=== PATIENT | male | born 1960 | race African-American/Black ===

== ENCOUNTER 2021-02-23 11:28 | Emergency (ER) | payer SELFPAY ==
[2021-02-23] MEDS ORDERED: Acetaminophen 500 MG Tab PO ONE (16:04)
[2021-02-23] MEDS ORDERED: Ibuprofen 400 MG Tab PO ONE (16:04)
--- NOTE | 2021-02-23 16:10 | EDM.PDOC ---
ED HPI GENERAL MEDICAL PROBLEM - General Chief Complaint: Head Injury Stated Complaint: FELL HIT FACE AND PAIN ON RIGHT RIB AREA Time Seen by Provider: 02/23/21 15:46 Source of Information: Reports: Patient History Limitations: Reports: No Limitations - History of Present Illness INITIAL COMMENTS - FREE TEXT/NARRATIVE: 60 yo male presents to ER with pain in his left side following a fall 2 days ago. He tripped falling to the cement striking his right face and right side on the ground. He feels he may of have a very brief LOC. after the fall he did not have a headache, denies nausea or vomiting. today he had no complaints of headache. Right side tender chest wall. no SOB. - Related Data Allergies Allergy/AdvReac Type Severity Reaction Status Date / Time No Known Allergies Allergy Verified 02/23/21 15:46 Home Meds: Home Meds . [Unable to Verify Home Med List] 02/23/21 [History] Past Medical History HEENT History: Reports: Impaired Vision Cardiovascular History: Reports: High Cholesterol Musculoskeletal History: Reports: Arthritis - Infectious Disease History Infectious Disease History: Reports: Chicken Pox, Measles, Mumps - Past Surgical History Head Surgeries/Procedures: Reports: None HEENT Surgical History: Reports: None Cardiovascular Surgical History: Reports: None Musculoskeletal Surgical History: Reports: None Dermatological Surgical History: Reports: None Social & Family History - Tobacco Use Tobacco Use Status *Q: Current Every Day Tobacco User Years of Tobacco use: 45 Packs/Tins Daily: 0.2 Used Tobacco, but Quit: No Second Hand Smoke Exposure: No - Caffeine Use Caffeine Use: Reports: None - Alcohol Use Days Per Week of Alcohol Use: 5 Number of Drinks Per Day: 4 Total Drinks Per Week: 20 - Recreational Drug Use Recreational Drug Use: No ED ROS GENERAL - Review of Systems Review Of Systems: See Below Constitutional: Denies: Fever, Chills Respiratory: Denies: Shortness of Breath, Wheezing Cardiovascular: Denies: Chest Pain ED EXAM, HEAD INJURY - Physical Exam Exam: See Below Exam Limited By: No Limitations General Appearance: Alert, WD/WN, No Apparent Distress Head: Atraumatic, Normocephalic Nexus Criteria: No: Posterior, Midline Cervical Tenderness, Evidence of Intoxication, Altered Level of Consciousness, Focal Neurological Deficit, Painful Distraction Injuries Neck: Non-Tender, Full Range of Motion Respiratory: No Respiratory Distress, Lungs Clear, Normal Breath Sounds, No Accessory Muscle Use, Chest Non-Tender, Other (right chest wall tenderness). No: Crackles, Rhonchi, Wheezing Cardiovascular: Regular Rate, Rhythm, Systolic Murmur GI/Abdominal Exam: Normal Bowel Sounds, Soft, Non-Tender, Hepatomegaly Course - Vital Signs Last Recorded V/S: Last Vital Signs Temp 36.7 C 02/23/21 15:47 Pulse 82 02/23/21 15:47 Resp 16 02/23/21 15:47 BP 164/83 H 02/23/21 15:47 Pulse Ox 96 02/23/21 15:47 - Orders/Labs/Meds Orders: Active Orders 24 hr Category Date Time Status Chest 2V [CR] Stat Exams 02/23/21 16:03 Taken Meds: Medications Discontinued Medications Generic Name Dose Route Start Last Admin Trade Name Freq PRN Reason Stop Dose Admin Acetaminophen 1,000 mg 02/23/21 16:04 02/23/21 16:42 Acetaminophen 500 Mg Tab PO 02/23/21 16:05 1,000 mg ONETIME ONE Administration Ibuprofen 400 mg 02/23/21 16:04 02/23/21 16:41 Ibuprofen 400 Mg Tab PO 02/23/21 16:05 400 mg ONETIME ONE Administration - Re-Assessments/Exams Free Text/Narrative Re-Assessment/Exam: 02/23/21 17:19 no acute osseous injury noted on chest x-ray. encouraged to decrease etOH intake Departure - Departure Time of Disposition: 17:20 Disposition: Home, Self-Care 01 Condition: Good Clinical Impression: Chest wall pain Fall Qualifiers: Encounter type: initial encounter Qualified Code(s): W19.XXXA - Unspecified fall, initial encounter - Discharge Information *PRESCRIPTION DRUG MONITORING PROGRAM REVIEWED*: Not Applicable *COPY OF PRESCRIPTION DRUG MONITORING REPORT IN PATIENT HEVER: Not Applicable Instructions: Chest Wall Pain, [id number] Referrals: PCP,None [Primary Care Provider] - Forms: ED Department Discharge Additional Instructions: ice at least 3 times per day for 15 minutes 3 deep breaths hourly while awake ibuprofen 400-600 mg every 6 hours for pain your liver looked very large on the x-ray, recommend decreasing your alcohol intake as we discussed Sepsis Event Note (ED) - Evaluation Sepsis Screening Result: No Definite Risk - Focused Exam Vital Signs: Vital Signs Temp Pulse Resp BP Pulse Ox 02/23/21 15:47 36.7 C 82 16 164/83 H 96 02/23/21 15:33 36.7 C 82 16 164/83 H 96 - My Orders Last 24 Hours: My Active Orders 02/23/21 16:03 Chest 2V [CR] Stat - Assessment/Plan Last 24 Hours: My Active Orders 02/23/21 16:03 Chest 2V [CR] Stat
--- NOTE | 2021-02-25 10:35 | CR ---
CHEST: 2 view CLINICAL HISTORY:Trauma, pain COMPARISON:None FINDINGS: The heart size, pulmonary vascularity and hilar structures are normal. No infiltrate effusion or pneumothorax is seen. IMPRESSION: No acute cardiopulmonary process.
== END 2021-02-23 17:28 | disposition home or self-care (01) ==
LOC: JP.ED 11:28
DX: R07.89 Other chest pain (principal); Z72.0 Tobacco use
CPT/HCPCS: 71046; 99284; A9270

== ENCOUNTER 2021-11-02 10:08 | Emergency (ER) | payer MEDICAID ==
[2021-11-02] MEDS ORDERED: Sodium Chloride 0.9% 10 ML Syringe FLUSH PRN (11:27)
[2021-11-02] MEDS ORDERED: Sodium Chloride 0.9% 1,000 ML IV SCH (11:30)
[2021-11-02] MEDS ORDERED: Pantoprazole 40 MG Vial IVPUSH ONE (12:01)
[2021-11-02] MEDS ORDERED: Furosemide 20 MG/2 ML VIAL IVPUSH ONE (17:36)
== END 2021-11-02 19:44 | disposition home or self-care (01) ==
LOC: JP.ED 10:08
DX: R06.02 Shortness of breath (principal); K92.2 Gastrointestinal hemorrhage, unspecified; D50.0 Iron deficiency anemia secondary to blood loss (chronic); E78.00 Pure hypercholesterolemia, unspecified; Z79.899 Other long term (current) drug therapy; Z87.891 Personal history of nicotine dependence
CPT/HCPCS: 36415; 36430; 71046; 80048; 80076; 83880; 84145; 85014; 85018; 85025; 85379; 85610; 85730; 86850; 86900; 86901; 86920; 86922; 93005; 96374; 96375; 99285; C9113; J1940; J7030; P9016

== ENCOUNTER 2022-05-01 18:12 | Emergency (ER) | payer MEDICAID ==
[2022-05-01] MEDS ORDERED: Sodium Chloride 0.9% 10 ML Syringe FLUSH PRN (18:25)
[2022-05-01 19:13] LABS: ESTIMATED GFR 86 mL/min (>60)
[2022-05-01] MEDS ORDERED: Pantoprazole 40 MG Tab.CR PO STA (20:25)
== END 2022-05-01 21:32 | disposition home or self-care (01) ==
LOC: JP.ED 18:12
DX: K22.6 Gastro-esophageal laceration-hemorrhage syndrome (principal); K29.21 Alcoholic gastritis with bleeding; E78.00 Pure hypercholesterolemia, unspecified; K21.9 Gastro-esophageal reflux disease without esophagitis; F17.210 Nicotine dependence, cigarettes, uncomplicated; Z79.899 Other long term (current) drug therapy; Z20.822 Contact with and (suspected) exposure to COVID-19
CPT/HCPCS: 36415; 80053; 82272; 85025; 85610; 85730; 86850; 86900; 86901; 87635; 99284; A9270; J3490; U0002

== ENCOUNTER 2023-03-09 17:54 | Emergency (ER) | payer MEDICAID ==
[2023-03-09 19:10] LABS: BASOPHILS PERCENT AUTO 0.2 % (0.1-1.3); HEMATOCRIT 25.4 % (38.4-49.7); HEMOGLOBIN 8.1 g/dL (12.9-16.9); IMMATURE GRAN PERCENT AUTO 0.4 % (0.0-0.7); LYMPHOCYTES PERCENT AUTO 16.7 % (11.4-47.7); MEAN CORPUSCULAR HEMOGLOBIN 35.5 pg (31.6-35.5); MEAN CORPUSCULAR HGB CONC 31.9 g/dL (31.6-35.5); MEAN CORPUSCULAR VOLUME 111.4 fL (81.4-99.0); MONOCYTES ABSOLUTE AUTO 2.51 K/uL (0.20-0.90); MONOCYTES PERCENT AUTO 46.5 % (3.3-12.6); NEUTROPHILS ABSOLUTE AUTO 1.96 K/uL (1.0-7.6); NEUTROPHILS PERCENT AUTO 36.2 % (40.0-78.1); PLATELET COUNT,PLT 199 K/uL (130-375); RED BLOOD CELL COUNT 2.28 M/uL (4.14-5.76); WHITE BLOOD CELL COUNT,WBC 5.4 K/uL (3.2-11.0)
[2023-03-09 19:12] LABS: BASOPHILS ABSOLUTE AUTO 0.01 K/uL (0.00-0.10); IMMATURE GRAN ABSOLUTE AUTO 0.02 K/uL (0.00-0.23)
[2023-03-09 19:34] LABS: ALANINE AMINOTRANSFERASE,ALT 21 U/L (12-78); ALBUMIN 3.1 g/dL (3.4-5.0); ALKALINE PHOSPHATASE 70 U/L (46-116); ASPARTATE AMNIOTRANSFERASE,AST 23 U/L (15-37); BILIRUBIN TOTAL 0.4 mg/dL (0.2-1.0); BLOOD UREA NITROGEN,BUN 13 mg/dL (7-18); CARBON DIOXIDE,CO2 27 mmol/L (21-32); CHLORIDE,CL 103 mmol/L (100-108); EST CRCL DRUG DOSING (CG) 71.61 mL/min; ESTIMATED GFR 85 mL/min (>60); GLUCOSE RANDOM 79 mg/dL (74-106); LIPASE 98 U/L (73-393); POTASSIUM,K 3.9 mmol/L (3.6-5.2); PROTEIN TOTAL,TP 7.9 g/dL (6.4-8.2); SODIUM,NA 138 mmol/L (140-148); TROPONIN I HIGH SENSITIVITY 11.1 pg/mL (<=60.3)
[2023-03-09 19:35] LABS: A/G RATIO 0.7 (1.2-2.2); ANION GAP 11.9 mmol/L (5.0-14.0)
== END 2023-03-09 21:25 | disposition home or self-care (01) ==
LOC: JP.ED 17:54
DX: K20.90 Esophagitis, unspecified without bleeding (principal); D64.9 Anemia, unspecified; E78.00 Pure hypercholesterolemia, unspecified; K21.9 Gastro-esophageal reflux disease without esophagitis; Z72.0 Tobacco use; Z79.899 Other long term (current) drug therapy
CPT/HCPCS: 36415; 80053; 82728; 83690; 84484; 85025; 99284

== ENCOUNTER 2023-03-19 07:17 | Day surgery (SDC) | payer MEDICAID ==
[~2023-03-19 07:17] MED LIST: Dextrose 5%-Lactated Ringers 1,000 ML IV SCH; Glycopyrrolate 0.2 MG/ML 2 ML SDV IVPUSH ONE
[2023-03-19] MEDS ORDERED: fentaNYL 50 MCG/ML SDV ONE (08:00)
[2023-03-19] MEDS ORDERED: Propofol 200 MG/20 ML SDV ONE (08:00)
[2023-03-19] MEDS ORDERED: Dextrose 5%-Lactated Ringers 1,000 ML IV SCH (08:00)
[2023-03-19] MEDS ORDERED: Midazolam 1 MG/ML 2 ML SDV ONE (08:00)
[2023-03-19] MEDS ORDERED: Glycopyrrolate 0.2 MG/ML 2 ML SDV IVPUSH ONE (08:30)
[2023-03-19 11:29] LABS: HEMATOCRIT 25.3 % (38.4-49.7); HEMOGLOBIN 8.1 g/dL (12.9-16.9); MEAN CORPUSCULAR HEMOGLOBIN 35.5 pg (31.6-35.5); PLATELET COUNT,PLT 175 K/uL (130-375); RED BLOOD CELL COUNT 2.28 M/uL (4.14-5.76); WHITE BLOOD CELL COUNT,WBC 2.6 K/uL (3.2-11.0)
[2023-03-19 12:05] LABS: A/G RATIO 0.6 (1.2-2.2); ALANINE AMINOTRANSFERASE,ALT 20 U/L (12-78); ALBUMIN 2.8 g/dL (3.4-5.0); ALKALINE PHOSPHATASE 59 U/L (46-116); ASPARTATE AMNIOTRANSFERASE,AST 14 U/L (15-37); BILIRUBIN TOTAL 0.2 mg/dL (0.2-1.0); BLOOD UREA NITROGEN,BUN 8 mg/dL (7-18); CALCIUM 8.3 mg/dL (8.5-10.1); CARBON DIOXIDE,CO2 28 mmol/L (21-32); CHLORIDE,CL 103 mmol/L (100-108); CREATININE 0.8 mg/dL (0.8-1.3); EST CRCL DRUG DOSING (CG) 89.51 mL/min; ESTIMATED GFR 100 mL/min (>60); FERRITIN 61 ng/ml (8-388); GLUCOSE RANDOM 115 mg/dL (74-106); MAGNESIUM 2.1 mg/dL (1.8-2.4); PHOSPHORUS 2.7 mg/dL (2.5-4.9); POTASSIUM,K 3.8 mmol/L (3.6-5.2); PROTEIN TOTAL,TP 7.5 g/dL (6.4-8.2); SODIUM,NA 138 mmol/L (140-148); TSH ULTRASENSITIVE 0.703 uIU/mL (0.358-3.740)
[2023-03-19 12:13] LABS: ANION GAP 10.8 mmol/L (5.0-14.0)
[2023-03-19 12:22] LABS: BAND ABSOLUTE MAN 0.16 K/uL; BAND PERCENT MAN 6 % (5-11); LYMPHOCYTES PERCENT MAN 46 % (24-44); METAMYELOCYTE PERCENT MAN 4 %; MONOCYTES ABSOLUTE MAN 0.26 K/uL (0.20-0.90); MONOCYTES PERCENT MAN 10 % (2-6); MYELOCYTE ABSOLUTE MAN 0.03; MYELOCYTE PERCENT MAN 1 %; NEUTROPHILS ABSOLUTE MAN 0.86 K/uL (1.0-7.6); SEG NEUTROPHILS PERCENT MAN 33 % (36-66)
== END 2023-03-19 11:36 | disposition home or self-care (01) ==
LOC: JP.SDS 07:17
PROVIDERS: ATTEND Surgery
DX: K21.00 Gastro-esophageal reflux disease with esophagitis, without bleeding (principal); D64.9 Anemia, unspecified; T18.2XXA Foreign body in stomach, initial encounter; K44.9 Diaphragmatic hernia without obstruction or gangrene; K29.70 Gastritis, unspecified, without bleeding; K22.10 Ulcer of esophagus without bleeding; E78.5 Hyperlipidemia, unspecified; E66.9 Obesity, unspecified; F17.200 Nicotine dependence, unspecified, uncomplicated
CPT/HCPCS: 36415; 43239; 43247; 80053; 82728; 83735; 83880; 84100; 84443; 85025; 86850; 86900; 86901; 86920; 86922; 87081; 88305; J2250; J2704; J3010; J3490; J7121

== ENCOUNTER 2023-03-22 07:19 | Inpatient (IN) | payer MEDICAID ==
[~2023-03-22 07:19] MED LIST changes: +Dexamethasone 4 MG/ML SDV ONE; -Dextrose 5%-Lactated Ringers 1,000 ML IV SCH; -Glycopyrrolate 0.2 MG/ML 2 ML SDV IVPUSH ONE; +Glycopyrrolate 0.2 MG/ML 5 ML MDV ONE; +Neostigmine Methylsulfate 1 MG/ML 5 ML Syringe ONE; +Ondansetron 4 MG/2 ML SDV ONE; +Propofol 200 MG/20 ML SDV ONE; +Rocuronium 50 MG/5 ML Vial ONE; +Scopolamine 1.5 MG Transdermal Patch TOP ONE; +Succinylcholine 200 MG/10 ML MDV ONE; +fentaNYL 250 MCG/5 ML SDV ONE
[2023-03-22] MEDS ORDERED: Ketamine 19 MG in Sodium Chloride 0.9% 19.81 ML IV SCH (08:00)
[2023-03-22] MEDS ORDERED: Dextrose 5%-Lactated Ringers 1,000 ML IV SCH ×2 (08:00→13:30)
[2023-03-22] MEDS ORDERED: Ropivacaine 40 ML, dexAMETHasone 8 MG, EPINEPHrine 0.4 MG, Sodium Chloride 0.9% 37.6 ML NERVRT SCH ×4 (08:00)
[2023-03-22] MEDS ORDERED: Ketamine 500 MG/5 ML MDV IV SCH (08:00)
[2023-03-22] MEDS ORDERED: ceFAZolin 1 GM Vial ONE (10:36)
[2023-03-22] MEDS ORDERED: fentaNYL 250 MCG/5 ML SDV ONE (10:56)
[2023-03-22] MEDS ORDERED: Lactated Ringers 1,000 ML ONE (10:57)
[2023-03-22] MEDS ORDERED: Labetalol 20 MG/4 ML Syringe ONE (11:02)
[2023-03-22] MEDS ORDERED: HYDROmorphone 0.5 MG/0.5 ML Syringe IVPUSH PRN (13:27)
[2023-03-22] MEDS ORDERED: Ondansetron 4 MG/2 ML SDV IVPUSH PRN (13:27)
[2023-03-22] MEDS ORDERED: HYDROmorphone 1 MG/ML Syringe IV PRN (13:28)
[2023-03-22] MEDS ORDERED: Pantoprazole 40 MG Vial IV SCH (15:00)
[2023-03-22] MEDS: Metoclopramide 10 MG/2 ML SDV IV SCH ×2 (15:09→23:29)
[2023-03-22] MEDS: VERIFY SCOP PATCH TOP SCH (17:52)
[2023-03-22] MEDS ORDERED: Latanoprost 0.005% Ophth Soln 2.5 ML Bottle EYEBOTH SCH (21:00)
[2023-03-22] MEDS: ceFAZolin 2 GM in Premix Bag 1 BAG IV SCH (21:17)
[2023-03-22] MEDS: Timolol Maleate 0.5% Ophth Soln 5 ML Bottle EYEBOTH SCH (22:46)
[2023-03-23] MEDS ORDERED: Iopamidol 612 MG/ML 30 ML SDV PO STA (02:25)
[2023-03-23] MEDS: ceFAZolin 2 GM in Premix Bag 1 BAG IV SCH ×2 (03:41→10:23)
[2023-03-23 04:36] LABS: HEMATOCRIT 21.6 % (38.4-49.7); IMMATURE GRAN ABSOLUTE AUTO 0.07 K/uL (0.00-0.23); IMMATURE GRAN PERCENT AUTO 1.1 % (0.0-0.7); LYMPHOCYTES ABSOLUTE AUTO 0.66 K/uL (0.8-3.3); LYMPHOCYTES PERCENT AUTO 10.4 % (11.4-47.7); MEAN CORPUSCULAR HEMOGLOBIN 34.7 pg (31.6-35.5); MEAN CORPUSCULAR HGB CONC 32.4 g/dL (31.6-35.5); MEAN CORPUSCULAR VOLUME 106.9 fL (81.4-99.0); MONOCYTES ABSOLUTE AUTO 2.42 K/uL (0.20-0.90); MONOCYTES PERCENT AUTO 38.2 % (3.3-12.6); NEUTROPHILS ABSOLUTE AUTO 3.19 K/uL (1.0-7.6); NEUTROPHILS PERCENT AUTO 50.3 % (40.0-78.1); PLATELET COUNT,PLT 181 K/uL (130-375); RED BLOOD CELL COUNT 2.02 M/uL (4.14-5.76); WHITE BLOOD CELL COUNT,WBC 6.3 K/uL (3.2-11.0)
[2023-03-23] MEDS: Metoclopramide 10 MG/2 ML SDV IV SCH ×2 (04:38→10:23)
[2023-03-23 04:59] LABS: A/G RATIO 0.6 (1.2-2.2); ALANINE AMINOTRANSFERASE,ALT 25 U/L (12-78); ALBUMIN 2.6 g/dL (3.4-5.0); ALKALINE PHOSPHATASE 55 U/L (46-116); ASPARTATE AMNIOTRANSFERASE,AST 27 U/L (15-37); BILIRUBIN TOTAL 0.8 mg/dL (0.2-1.0); BLOOD UREA NITROGEN,BUN 10 mg/dL (7-18); CALCIUM 8.3 mg/dL (8.5-10.1); CARBON DIOXIDE,CO2 29 mmol/L (21-32); CHLORIDE,CL 101 mmol/L (100-108); CREATININE 0.9 mg/dL (0.8-1.3); EST CRCL DRUG DOSING (CG) 79.56 mL/min; ESTIMATED GFR 97 mL/min (>60); GLUCOSE RANDOM 115 mg/dL (74-106); PHOSPHORUS 3.5 mg/dL (2.5-4.9); PROTEIN TOTAL,TP 7.1 g/dL (6.4-8.2); SODIUM,NA 135 mmol/L (140-148)
[2023-03-23] MEDS: VERIFY SCOP PATCH TOP SCH (08:46)
[2023-03-23] MEDS: Timolol Maleate 0.5% Ophth Soln 5 ML Bottle EYEBOTH SCH (08:54)
== END 2023-03-23 13:59 | disposition home or self-care (01) | DRG 328 ==
LOC: JP.SDS 07:19 → JP.MS 12:10
PROVIDERS: ADMIT Surgery; ATTEND Surgery
PROC: 0DV44ZZ Restriction of Esophagogastric Junction, Percutaneous Endoscopic Approach (ICD-10-PCS; principal; 2023-03-22)
PROC: 0BUT4JZ Supplement Diaphragm with Synthetic Substitute, Percutaneous Endoscopic Approach (ICD-10-PCS; 2023-03-22)
PROC: 30233N1 Transfusion of Nonautologous Red Blood Cells into Peripheral Vein, Percutaneous Approach (ICD-10-PCS; 2023-03-22)
DX: K44.9 Diaphragmatic hernia without obstruction or gangrene (principal); K21.00 Gastro-esophageal reflux disease with esophagitis, without bleeding; E78.00 Pure hypercholesterolemia, unspecified; M19.90 Unspecified osteoarthritis, unspecified site; D50.0 Iron deficiency anemia secondary to blood loss (chronic); F17.200 Nicotine dependence, unspecified, uncomplicated; Z79.899 Other long term (current) drug therapy
CPT/HCPCS: 36415; 36430; 74240; 74240-26; 80053; 83735; 84100; 85025; 86850; 86900; 86901; 86920; 86922; A9270-GY; C1713; C1781; C9113; J0131; J0171; J0330; J0690; J1100; J1170; J2405; J2704; J2710; J2765; J2795; J3010; J3490; J7120; J7121; P9016; Q9967; U0002